=== PATIENT | female | born 1965 | race Caucasian/White ===

== ENCOUNTER → 2018-05-17 | Outpatient (CLI) | payer OTHER | END | disposition home or self-care (01) | LOC: CFH 07:18 | PROVIDERS: ATTEND Internal Medicine | DX: I34.0 Nonrheumatic mitral (valve) insufficiency (principal); R00.1 Bradycardia, unspecified | CPT/HCPCS: 93306 ==

== ENCOUNTER → 2018-05-19 | Outpatient (CLI) | payer OTHER ==
[~2018-05-19] MED LIST: OMNIPAQUE 350 MG/ML, 100ML BOTTLE ONE
== END | disposition home or self-care (01) ==
LOC: RAD 08:04
PROVIDERS: ATTEND Internal Medicine
DX: I51.7 Cardiomegaly (principal); K76.0 Fatty (change of) liver, not elsewhere classified; K59.00 Constipation, unspecified
CPT/HCPCS: 71260; 74177; 76700; Q9967